=== PATIENT | male | born 1940 | race Caucasian/White ===

== ENCOUNTER 2018-11-07 23:00 | Observation (INO) ==
[2018-11-07] MEDS ORDERED: DUONEB 0.5 MG/3 MG NEB ONE (23:40)
[2018-11-07] MEDS ORDERED: SOLU-Medrol 125 MG VIAL IVP ONE (23:40)
[2018-11-07] MEDS ORDERED: LEVSIN/MAALOX/LIDOC VISC PO ONE (23:40)
[2018-11-07] MEDS ORDERED: SOLU-Medrol 125 MG VIAL ONE (23:42)
[2018-11-07] MEDS ORDERED: LEVSIN/MAALOX/LIDOC VISC ONE (23:42)
[2018-11-07] MEDS ORDERED: ZOFRAN INJ 4 MG VIAL IVP ONE (23:43)
--- NOTE | 2018-11-07 23:43 | DR.CP ---
HPI - Time Seen Time seen: 23:39 - PCP Primary Care Physician: DARBY - Complaint Chief Complaint Doctor Comments: Patient states he has been having chest pain for the past six hours getting progressively worst with episode vomiting earlier today. states onset of chest pain while resting watching tv. states he has had a cold, cough and has been wheezing. He has been using his Ventolin inhaler today. Family states he keeps a dry cough all the time. Patient states he smokes 1/3 pack cigarettes daily but denies alcohol usage. Sate he took an aspirin today and his chest pain was 9 of 10 initially but is now 4 of 10. He denies dysuria,hematuria, karon or chest injury. States he is a patient of Dr. Bowers and has not had any problems with his heart before. Chief Complaint:: " I HAVE BEEN HAVING PAINS IN MY CHEST SINCE ABOUT 5 THIS AFTERNOON AND BEEN THROWING UP JUST A STEADY PAIN THERE RIGHT IN THE MIDDLE OF MY CHEST." - Reviewed Nurses Notes Review: Yes - Source History Provided: Patient - Mode of Arrival Mode of Arrival: Ambulatory - Timing Onset of Chief Complaint: 11/07/18 Came on: Suddenly Pain: Present Now - Duration Duration: Constant How lon Duration: Hours - Location Location of Chest Pain: Chest Chest Pain Radiation Location: None - Context Onset: At rest Cardiac Risk Factors: Smoker, HTN PE Risk Factors: None History of: None, Aspirin in last 24 hours Prehospital Care: ASA - Quality Quality: Pressure like - Severity Severity: Moderate - Modifying Factors Worsens: Breathing, Movement Impoves: Nothing - Associated Signs and Symptoms Associated Signs and Symptoms: Nausea/Vomiting PMH - PMH Past Medical History: No Past Surgical History: Yes Past Surgical History Comment: HERNIA REPAIR - Family History History of Family Medical Conditions: No - Social History Alcohol Use: None Do you use any recreational Drugs:: No - infectious screening Have you traveled outside the country in the last 6 months?: No ROS - Review of Systems Constitutional: No Symptoms Reported Eyes: No Symptoms Reported ENTM: No Symptoms Reported Respiratoy: No Symptoms Reported, Non-Productive Cough, Short of Breath, Wheezing Cardiovascular: No Symptoms Reported, Chest Pain. negative: See HPI, Edema, Palpitations, Syncope, Cyanosis, Skin Mottling, Other Gastrointestinal/Abdominal: No Symptoms Reported, Nausea, Vomiting. negative: See HPI, Abdominal Pain, Constipation, Diarrhea, Food Intolerance, Other Genitourinary: No Symptoms Reported. negative: See HPI, Discharge, Dysuria, Frequency, Hematuria, Pain, Bleeding, Other Neurological: No Symptoms Reported Musculoskeletal: No Symptoms Reported Integumentary: No Symptoms Reported Hematologic/Lymphatic: No Symptoms Reported. negative: See HPI, Anemia, Blood Clots, Easy Bleeding, Easy Bruising, Swollen Glands, Lymphadenopathy, Other Endocrine: No Symptoms Reported Psychiatric: No Symptoms Reported. negative: See HPI, Anxiety, Depression, Hallucinations, Excessive crying, Suicidal, Other PE - General Limitations: No Limitations General Appearance: Alert, In Distress (slight) - Head Head Exam: Normal Inspection, Atraumatic, Normocephalic - Eyes Eye exam: Normal Appearance, PERRL, EOMI. negative: Scleral Icterus, Conjunctival Injection, Nystagmus, Miosis, Mydrasis, Periorbital Swelling, Periorbital Tenderness, Other - ENT ENT Exam: Normal Exam, Normal Oropharynx, Normal External Ear Exam, Mucous Membranes Moist, TM's Normal Bilaterally - Chest Chest Inspection: Normal Inspection, Symmetric Chest Wall Rise - Respiratory Respiratory Exam: Normal Lung Sounds Bilat, Prolonged Expiratory Phase Respiratory Exam: Bilateral Wheezing, Bilateral Decreased Breath Sounds, Left Rales - Cardiovascular Cardiovascular Exam: Regular Rate, Normal Rhythm, Normal Heart Sounds Pulse: Normal Edema: Normal - Abdominal Exam Abdominal Exam: Normal Inspection, Normal Bowel Sounds, Soft, Tenderness (epigastric tenderness). negative: Distention, Guarding, Rebound, Rigidity, Dimnished Bowel Sounds, Hyperactive Bowel Sounds, Hypoactive Bowel Sounds, Organomegaly, Trauma, Incision, Ascites, Mass, Bruit, Pulsatile Mass, Hernia, Other Abdominal Tenderness: Epigastrium, Mild - Extremities Extremities Exam: Normal Inspection, Full ROM, Normal Capillary Refill. negative: Tenderness, Edema, Joint Swelling, Calf Tenderness, Other - Back Back Exam: Normal Inspection, Full ROM. negative: Tenderness, (R) CVA Tenderness, (L) CVA Tenderness, Muscle Spasm, Paraspinal Tenderness, Vertebral Tenderness, Rashes, (R) Sciatic Notch Tenderness, (L) Sciatic Notch Tendern, (R) Straight Leg Raise, (L) Straight Leg Raise, Other - Neurologic Neurological Exam: Alert, Oriented X3, CN II-XII Intact, Reflexes Normal. negative: Normal Gait (gait not tested) - Psychiatric Psychiatric Exam: Normal Affect, Normal Mood. negative: Depressed, Agitated, Anxious, Flat Affect, Manic, Homicidal Ideation, Suicidal Ideation, Other - Skin Skin Exam: Warm, Dry, Intact, Normal Color - Vitals Vitals: Temperature 97.8 F Pulse Rate 80 Respiratory Rate 18 Blood Pressure 106/60 O2 Sat by Pulse Oximetry 96 Course - Consultation Called: 03:18 (Dr. Festus rizzo) - Education/Counseling Education/Counseling: Patient, Family Educated On: Treatment, Diagnosis, Needs for Follow Up ROR - Labs Reviewed Laboratory Results Reviewed?: Yes (All labs and x-ray results reviewed and discussed with patient) Result Diagrams: 11/07/18 23:24 11/07/18 23:24 - XRAY XRAY Interpreted by: Radiologist (CTA chest: No evidence for PTE or acute cardiopulmonary abnormality. Severe COPD, bibasilar fibrosis) - EKG Rate: 72 [place]: Normal Rhythm: NSR Block: None ST: Old, Inf, Infarct - Labs Reviewed Laboratory: WBC 12.9 X10^3/uL (3.6-10.0) H 11/07/18 23:24 RBC 4.79 X10^6/uL (4.7-6.0) 11/07/18 23:24 Hgb 14.2 g/dL (13.5-18.0) 11/07/18 23:24 Hct 42.7 % (42.0-54.0) 11/07/18 23:24 MCV 89.3 fL (80.0-100.0) 11/07/18 23:24 MCH 29.6 pg (27.0-34.0) 11/07/18 23:24 MCHC 33.2 g/dL (33.0-35.0) 11/07/18 23:24 RDW 14.7 % (11.6-16.5) 11/07/18 23:24 Plt Count 298 X10^3/uL (150.0-450.0) 11/07/18 23:24 MPV 8.5 fL (7.4-11.0) 11/07/18 23:24 Neut % (Auto) 63.6 % (42.0-75.0) 11/07/18 23:24 Lymph % (Auto) 23.5 % (21.0-51.0) 11/07/18 23:24 [place] % (Auto) 7.4 % (0.0-13.0) 11/07/18 23:24 Eos % (Auto) 5.0 % (0.9-2.9) H 11/07/18 23:24 Baso % (Auto) 0.5 % (0.2-1.0) 11/07/18 23:24 Neut # (Auto) 8.2 x10^3/uL (2.2-4.8) H 11/07/18 23:24 Lymph # (Auto) 3.0 X10^3/uL (1.3-2.9) H 11/07/18 23:24 [place] # (Auto) 0.9 x10^3/uL (0.3-0.8) H 11/07/18 23:24 Eos # (Auto) 0.6 x10^3/uL (0.0-0.2) H 11/07/18 23:24 Baso # (Auto) 0.1 X10^3/uL (0.0-0.1) 11/07/18 23:24 Absolute Nucleated RBC 0.0 /100WBC 11/07/18 23:24 INR Target Range - 11/07/18 23:24 INR 0.94 (0.8-1.3) 11/07/18 23:24 APTT 31.0 SECONDS (22.9-36.5) 11/07/18 23:24 PTT Comment - 11/07/18 23:24 D-Dimer 1000 ng/mL (0-400) H* 11/07/18 23:24 Sodium 142 mmol/L (136-145) 11/07/18 23:24 Corrected Sodium TNP 11/07/18 23:24 Potassium 3.9 mmol/L (3.5-5.1) 11/07/18 23:24 Chloride 104 mmol/L (98-107) 11/07/18 23:24 Carbon Dioxide 27.8 mmol/L (21-32) 11/07/18 23:24 BUN 19 mg/dL (7-18) H 11/07/18 23:24 Creatinine 1.21 mg/dL (0.70-1.30) 11/07/18 23:24 Est GFR (MDRD) Af Amer > 60 (>60) 11/07/18 23:24 Est GFR (MDRD) Non-Af > 60 (>60) 11/07/18 23:24 Glucose 105 mg/dL (65-99) H 11/07/18 23:24 Calcium 9.4 mg/dL (8.5-10.1) 11/07/18 23:24 Corrected Calcium TNP 11/07/18 23:24 Total Bilirubin 0.30 mg/dL (0.2-1.0) 11/07/18 23:24 AST 21 Units/L (15-37) 11/07/18 23:24 ALT 19 Units/L (12-78) 11/07/18 23:24 Alkaline Phosphatase 89 Units/L (46-116) 11/07/18 23:24 Creatine Kinase 114 Units/L (39-308) 11/07/18 23:24 CK-MB (CK-2) < 1.0 ng/mL (0-4.0) 11/07/18 23:24 CK/CKMB % Calc 0.9 % (<4) 11/07/18 23:24 Troponin I < 0.02 ng/mL (0-1.5) 11/07/18 23:24 Total Protein 8.0 g/dL (6.4-8.2) 11/07/18 23:24 Albumin 3.8 g/dL (3.4-5.0) 11/07/18 23:24 Globulin 4.2 g/dL (2.5-4.5) 11/07/18 23:24 Albumin/Globulin Ratio 0.9 Ratio (1.1-2.1) L 11/07/18 23:24 - Diagnosis Discharge Problem: Chest pain, rule out acute myocardial infarction, COPD with acute exacerbation, Emphysema of lung, Bronchitis, Old inferior wall myocardial infarction - Discharge Plan Disposition: ADMITTED INPATIENT Condition: Stable - Follow ups/Referrals Follow ups/Referrals: Kike Mortensen [Primary Care Provider] - 3 days - Instructions
[2018-11-07] MEDS ORDERED: ZOFRAN INJ 4 MG VIAL ONE (23:49)
[2018-11-07] MEDS ORDERED: DUONEB 0.5 MG/3 MG ONE (23:49)
[2018-11-07 23:57] LABS: BASOPHILS # (AUTO) 0.1 X10^3/uL (0.0-0.1); BASOPHILS % (AUTO) 0.5 % (0.2-1.0); EOSINOPHILS # (AUTO) 0.6 x10^3/uL (0.0-0.2); HEMATOCRIT 42.7 % (42.0-54.0); HEMOGLOBIN 14.2 g/dL (13.5-18.0); LYMPHOCYTES % (AUTO) 23.5 % (21.0-51.0); MEAN CORPUSCULAR HEMOGLOBIN 29.6 pg (27.0-34.0); MEAN CORPUSCULAR HGB CONC 33.2 g/dL (33.0-35.0); MEAN CORPUSCULAR VOLUME 89.3 fL (80.0-100.0); MEAN PLATELET VOLUME 8.5 fL (7.4-11.0); MONOCYTES # (AUTO) 0.9 x10^3/uL (0.3-0.8); MONOCYTES % (AUTO) 7.4 % (0.0-13.0); NEUTROPHILS # (AUTO) 8.2 x10^3/uL (2.2-4.8); NEUTROPHILS % (AUTO) 63.6 % (42.0-75.0); PLATELET COUNT 298 X10^3/uL (150.0-450.0); RED BLOOD COUNT 4.79 X10^6/uL (4.7-6.0); RED CELL DISTRIBUTION WIDTH 14.7 % (11.6-16.5); WHITE BLOOD COUNT 12.9 X10^3/uL (3.6-10.0)
[2018-11-08 00:06] LABS: ALANINE AMINOTRANSFERASE 19 Units/L (12-78); ALBUMIN 3.8 g/dL (3.4-5.0); ALKALINE PHOSPHATASE 89 Units/L (46-116); ASPARTATE AMINO TRANSFERASE 21 Units/L (15-37); BLOOD UREA NITROGEN 19 mg/dL (7-18); CALCIUM 9.4 mg/dL (8.5-10.1); CARBON DIOXIDE 27.8 mmol/L (21-32); CHLORIDE 104 mmol/L (98-107); CREATININE 1.21 mg/dL (0.70-1.30); SODIUM 142 mmol/L (136-145); eGFR NON BLACK RACES > 60 (>60)
[2018-11-08 00:19] LABS: CKMB % 0.9 % (<4); CREATINE KINASE 114 Units/L (39-308); CREATINE KINASE MB < 1.0 ng/mL (0-4.0); TROPONIN I < 0.02 ng/mL (0-1.5)
[2018-11-08] MEDS ORDERED: NS 100 ML IV 100 ML ONE (00:31)
--- NOTE | 2018-11-08 01:09 | CT ---
CTA chest Indication: Chest pain, elevated D-dimer Comparison: None Technique: CT images of the chest were obtained with contrast. Automatic exposure control was utilized. MIP images provided. Findings: The upper abdomen is grossly unremarkable. No acute osseous abnormality. The heart size is normal, without pericardial thickening or pericardial effusion. Scattered coronary artery calcifications are noted. Shotty AP window lymph nodes are present. No bulky adenopathy. The thoracic aorta is grossly normal for technique. No pulmonary arterial filling defect is identified. There is severe upper lobe predominant emphysema with lung hyperinflation and mild bibasilar fibrosis. There is basilar predominant peribronchial thickening, compatible with bronchitis. No infiltrates, pleural effusion, or pneumothorax. Biapical pleural parenchymal scarring is noted. There is a small right right-sided nodule on image 61, series 7, likely a benign intrafissural lymph node. Impression: No evidence for PTE or other acute cardiopulmonary abnormality. Severe COPD. Basilar fibrosis. Shotty mediastinal lymph nodes are likely reactive. Reported By:
--- NOTE | 2018-11-08 01:35 | RAD ---
Chest, 1 view Indication: Chest pain Comparison: None Findings: There is severe COPD with bibasilar fibrosis and apical pleural parenchymal scarring. No focal infiltrates, pleural effusion, or pneumothorax. The heart size is normal. Impression: No acute chest process. Severe COPD. Reported By:
[2018-11-08 04:18] LABS: BILIRUBIN,URINE NEGATIVE (NEGATIVE); BLOOD/HEMOGLOBIN,URINE 2+ (NEGATIVE); GLUCOSE, URINE NEGATIVE (NEGATIVE); KETONES,URINE 3+ (NEGATIVE); LEUKOCYTE ESTERASE ,URINE 2+ (NEGATIVE); NITRITES,URINE NEGATIVE (NEGATIVE); PROTEIN,URINE 2+ (NEGATIVE); UROBILINOGEN,URINE NORMAL (NORMAL)
[2018-11-08 04:35] LABS: APPEARANCE,URINE CLEAR (CLEAR); BACTERIA,URINE TRACE /HPF (NEGATIVE); COLOR,URINE YELLOW (YELLOW); RBC,URINE 0-2 /HPF (NONE SEEN); SQUAMOUS EPITHELIAL CELL,UR RARE /HPF (NEGATIVE)
[2018-11-08 04:53] VITALS: BMI 20.5
[2018-11-08] MEDS: DUONEB 0.5 MG/3 MG NEB SCH ×5 (04:58→20:18)
[2018-11-08 06:30] LABS: BLOOD UREA NITROGEN 17 mg/dL (7-18); CALCIUM 8.9 mg/dL (8.5-10.1); CARBON DIOXIDE 23.5 mmol/L (21-32); CHLORIDE 103 mmol/L (98-107); CHOL/HDL RATIO 2.7 (0.0-5.0); CHOLESTEROL 176 mg/dL (0-200); CKMB % 1.1 % (<4); COR NA(FOR HYPERGLY) 140 mmol/L (136-145); CREATINE KINASE 88 Units/L (39-308); CREATINE KINASE MB < 1.0 ng/mL (0-4.0); CREATININE 1.08 mg/dL (0.70-1.30); HDL CHOLESTEROL 66 mg/dL (40-60); SODIUM 139 mmol/L (136-145); TRIGLYCERIDES 29 mg/dL (0-150); TROPONIN I < 0.02 ng/mL (0-1.5); eGFR NON BLACK RACES > 60 (>60)
[2018-11-08] MEDS: LOVENOX INJ 40 MG SYR SC SCH (08:56)
[2018-11-08] MEDS: ROCEPHIN VIAL 1 GRAM IVP SCH (08:56)
[2018-11-08] MEDS: NS 1000 ML 1,000 ML IV SCH (09:02)
[2018-11-08 10:00] LABS: CREATINE KINASE 82 Units/L (39-308); CREATINE KINASE MB < 1.0 ng/mL (0-4.0); TROPONIN I < 0.02 ng/mL (0-1.5)
[2018-11-08 10:06] LABS: CKMB % 1.2 % (<4)
[2018-11-08] MEDS ORDERED: SOLU-Medrol 40 MG VIAL ONE (13:46)
[2018-11-08] MEDS: SOLU-Medrol 40 MG VIAL IVP SCH ×2 (13:56→21:26)
[2018-11-08 16:02] LABS: CREATINE KINASE 77 Units/L (39-308); CREATINE KINASE MB < 1.0 ng/mL (0-4.0); TROPONIN I < 0.02 ng/mL (0-1.5)
[2018-11-08 16:04] LABS: CKMB % 1.3 % (<4)
--- NOTE | 2018-11-08 20:52 | DR.H&P ---
H&P - History & Physical for Day of: H&P Date: 11/07/18 - Chief Complaint Chief Complaint: CHEST PAIN, SOB, COUGH, WHEEZING - History of Present Illness History of Present Illness: IS A 77 YEAR OLD PATIENT OF OURS WHO PRESENTED TO THE ER WITH COMPLAINTS OF CHEST PAIN THAT STARTED APPROXIMATELY EIGHT HOURS PRIOR TO ARRIVAL AT THE ER. HE DESCRIBES PAIN STEADY PRESSURE IN THE MIDDLE OF CHEST. HE RATES PAIN 4/10. HE ADMITS TO COUGH, WHEEZING, AND VOMITING. ON ARRIVAL, VITALS WERE 97.8-73-20-95%-111/58. LABS WERE OBTAINED. ABNORMAL LAB VALUES INCLUDE THE FOLLOWING: WBC 12.9, D-DIMER 1000, BUN 19, GLUCOSE 105. CARDIAC ENZYMES WITHIN NORMAL LIMITS. URINALYSIS REVEALED: WBC 10- 20, RBC 0-2, LEUKOCYTES 2+, BACTERIATRACE. EKG REVEALED SINUS RHYTHM WITH HR 72. CHEST XRAY REVEALED NO ACUTE CHEST PROCESS. COPD. A CHEST CTA WAS OBTAINED AND REVEALED: No evidence for PTE or other acute cardiopulmonary abnormality. Severe COPD. Basilar fibrosis. Shotty mediastinal lymph nodes are likely reactive. HE WAS GIVEN ZOFRAN 4MG IV X 1, SOLU-MEDROL 125MG IV X 1, GI COCKTAIL, AND A DUONEB IN THE ER. HE REPORTED SLIGHT IMPROVEMENT IN SYMPTOMS. HE WAS ADMITTED FOR FURTHER EVALUATION AND TREATMENT OF CHEST PAIN RULE OUT ACUTE GA AND COPD EXACERBATION. HE WAS STARTED ON SOLU-MEDROL 40MG IV Q8H, LOVENOX 40MG SC DAILY, ROCEPHIN 1G IV DAILY, AND RESPIRATORY TREATMENTS. WE PLAN TO FOLLOW UP WITH AM LABS AND CHEST XRAY AND CONTINUE TO MONITOR. - Past Medical History Past Medical History: COPD, Dyslipidemia - Past Surgical History Surgical History: Unknown - Social History Does patient currently use any type of tobacco product: Yes Have you used tobacco products in the last 12 months: Yes Type of Tobacco Use: Cigarettes How many years tobacco product used: 60 Does any household member use tobacco: No Alcohol Use: None Drug Use: None - Medications Home Medications: No Known Drug Allergies Allergy (Verified 11/07/18 23:30) CONTINUE taking the following medications aspirin 81 mg PO QDAY 11/08/18 [History] budesonide-formoterol [Symbicort] 2 puff INHALATION BID 11/08/18 [History] folic acid 0.4 mg PO QDAY 11/08/18 [History] ranitidine HCl 150 mg PO BID 11/08/18 [History] simvastatin 20 mg PO QHS 11/08/18 [History] - Review of Systems Constitutional: See HPI Eyes: No Symptoms Reported ENT: No Symptoms Reported Respiratory: See HPI, Cough, Shortness of Breath, SOB with Excertion, Wheezing Cardiovascular: Chest Pain, See HPI Gastrointestinal: No Symptoms Reported Genitourinary: No Symptoms Reported Musculoskeletal: No Symptoms Reported Skin: No Symptoms Reported Neurological: No Symptoms Reported - Physical Exam Vital Signs: Temperature 98.1 F Pulse Rate [Brachial] 86 Pulse Rate 83 Respiratory Rate 18 Blood Pressure [Right Arm] 101/58 Blood Pressure 95/54 O2 Sat by Pulse Oximetry 92 Oriented: Normal Eyes: Normal Ear: Normal Nose: Normal Throat: Normal Respiratory: Wheezes Throughout Cardiovascular: Normal. negative: S3, S4, Murmur : Normal Auscultation: Bowel Sounds: Normal Palpation: Normal Tenderness: Normal Skin: Normal Musculoskeletal: Normal Psychiatric: Normal Mood Description: Calm Affect: Normal Speech Pattern: Clear - Assessment/Plan (1) Chest pain, rule out acute myocardial infarction Status: Acute Plan: SERIAL CARDIAC ENZYMES AND EKGS, VICE PRESIDENT LENDING, CONTINUE TO MONITOR (2) COPD with acute exacerbation Status: Acute Plan: SOLU-MEDROL, RESPIRATORY TREATMENTS, SUPPLEMENTAL OXYGEN, CONTINUE TO MONITOR - Allergies Allergies/Adverse Reactions: Allergies Allergy/AdvReac Type Severity Reaction Status Date / Time No Known Drug Allergies Allergy Verified 11/07/18 23:30
[2018-11-09] MEDS: DUONEB 0.5 MG/3 MG NEB SCH ×4 (00:40→12:15)
[2018-11-09 05:22] LABS: BASOPHILS % (AUTO) 0.1 % (0.2-1.0); HEMATOCRIT 34.4 % (42.0-54.0); HEMOGLOBIN 11.5 g/dL (13.5-18.0); LYMPHOCYTES # (AUTO) 1.1 X10^3/uL (1.3-2.9); LYMPHOCYTES % (AUTO) 7.9 % (21.0-51.0); MEAN CORPUSCULAR HEMOGLOBIN 29.6 pg (27.0-34.0); MEAN CORPUSCULAR HGB CONC 33.5 g/dL (33.0-35.0); MEAN CORPUSCULAR VOLUME 88.1 fL (80.0-100.0); MEAN PLATELET VOLUME 9.2 fL (7.4-11.0); MONOCYTES # (AUTO) 0.4 x10^3/uL (0.3-0.8); MONOCYTES % (AUTO) 3.1 % (0.0-13.0); NEUTROPHILS # (AUTO) 12.5 x10^3/uL (2.2-4.8); NEUTROPHILS % (AUTO) 88.9 % (42.0-75.0); PLATELET COUNT 214 X10^3/uL (150.0-450.0); RED BLOOD COUNT 3.91 X10^6/uL (4.7-6.0); RED CELL DISTRIBUTION WIDTH 14.8 % (11.6-16.5); WHITE BLOOD COUNT 14.1 X10^3/uL (3.6-10.0)
[2018-11-09 05:35] LABS: ALANINE AMINOTRANSFERASE 17 Units/L (12-78); ALBUMIN 3.1 g/dL (3.4-5.0); ALKALINE PHOSPHATASE 64 Units/L (46-116); ASPARTATE AMINO TRANSFERASE 14 Units/L (15-37); BLOOD UREA NITROGEN 38 mg/dL (7-18); CALCIUM 8.7 mg/dL (8.5-10.1); CARBON DIOXIDE 22.3 mmol/L (21-32); CHLORIDE 105 mmol/L (98-107); COR CA(FOR HYPOALB) 9.4 mg/dL (8.5-10.1); COR NA(FOR HYPERGLY) 141 mmol/L (136-145); CREATININE 1.38 mg/dL (0.70-1.30); SODIUM 139 mmol/L (136-145); TOTAL PROTEIN 6.7 g/dL (6.4-8.2); eGFR NON BLACK RACES 53 (>60)
--- NOTE | 2018-11-09 06:08 | RAD ---
HISTORY: Shortness of breath Study: Single view chest Comparison: CT 11/08/2018 Findings: There are chronic emphysematous and fibrotic changes of the lungs. No infiltrate, effusion or pneumothorax identified. The cardiac and mediastinal contours are within normal limits. The soft tissues are unremarkable. IMPRESSION: 1. Stable chronic emphysematous and fibrotic changes. Reported By:
[2018-11-09] MEDS: SOLU-Medrol 40 MG VIAL IVP SCH (06:31)
[2018-11-09] MEDS: NS 1000 ML 1,000 ML IV SCH (06:31)
[2018-11-09] MEDS: LOVENOX INJ 40 MG SYR SC SCH (08:34)
[2018-11-09] MEDS: ROCEPHIN VIAL 1 GRAM IVP SCH (08:34)
[2018-11-09] MEDS ORDERED: SOLU-Medrol 40 MG VIAL IVP SCH (09:00)
[2018-11-09 12:04] VITALS: BP 98/65
== END 2018-11-09 13:50 | disposition home or self-care (01) ==
LOC: ER 23:08 → ICU 23:08 → MED/SURG 11-08 13:30
PROVIDERS: ADMIT Internal Medicine; ATTEND Internal Medicine
DX: D72.828 Other elevated white blood cell count; Z79.899 Other long term (current) drug therapy; J44.1 Chronic obstructive pulmonary disease with (acute) exacerbation; I25.2 Old myocardial infarction; R94.31 Abnormal electrocardiogram [ECG] [EKG]; Z79.01 Long term (current) use of anticoagulants; J20.8 Acute bronchitis due to other specified organisms; R11.2 Nausea with vomiting, unspecified; E78.2 Mixed hyperlipidemia; R07.89 Other chest pain
CPT/HCPCS: 36415; 71010; 71045; 71275; 80048; 80053; 80061; 81001; 82550; 82553; 84484; 85025; 85378; 85610; 85730; 93005; 94640; 96365; 96367; 96372; 96374; 96375; 99284; A4216; A4222; G0378; J0696; J1650; J2405; J2920; J2930; J7030; J7050; J7620